=== PATIENT | male | born 2000 | race Hispanic/Latino ===

== ENCOUNTER 2022-10-20 20:38 | Emergency (ER) | payer OTHER, SELFPAY ==
[2022-10-20] MEDS ORDERED: ONDANSETRON 4 MG (ODT) TAB ONE (21:20)
--- NOTE | 2022-10-20 23:07 | EDPHYS ---
Physician Documentation [facility] Name: Ulises Connolly Age: 22 yrs Sex: Male : 2000 Arrival Date: 10/20/2022 Time: 20:38 Bed DX4 Private MD: ED Physician Endy Olmedo HPI: 10/20 21:03 This 22 yrs old Male presents to ER via Unassigned with complaints of Vomiting.cp 21:03 The patient presents to the emergency department with nausea, that is moderate, cp vomiting, that is continuous. Onset: The symptoms/episode began/occurred this morning. Associated signs and symptoms: Pertinent positives: abdominal pain, fever, body aches, headache, back pain. Historical: - Allergies: 21:06 No Known Allergies; cm10 - Home Meds: 21:06 None [Active]; cm10 - PMHx: 21:06 Seizure; cm10 - PSHx: 21:06 None; cm10 - Immunization history:: Adult Immunizations unknown. - Social history:: Smoking status: Patient reports the use of cigarette tobacco products, denies chronic smoking, but will smoke occasionally. ROS: 21:10 Constitutional: Positive for body aches, Negative for fever. cp 21:10 Respiratory: Negative for cough, shortness of breath, wheezing. cp 21:10 Eyes: Positive for pain, Negative for discharge, redness, visual disturbance. cp 21:10 ENT: Positive for sore throat, Negative for drainage from ear(s), ear pain, difficulty swallowing, difficulty handling secretions. 21:10 Abdomen/GI: Positive for nausea and vomiting, Negative for abdominal pain, diarrhea, constipation. 21:10 Neuro: Positive for headache, Negative for altered mental status, weakness. 21:10 All other systems are negative. Exam: 21:13 Constitutional: The patient appears in no acute distress, alert, awake, non-toxic, well cp developed, well nourished. 21:13 Head/Face: Normocephalic, atraumatic. cp 21:13 Eyes: Periorbital structures: appear normal, Conjunctiva: normal, no exudate, no injection, Sclera: no appreciated abnormality, Lids and lashes: appear normal, bilaterally. 21:13 ENT: External ear(s): are unremarkable, Ear canal(s): are normal, TM's: dullness, bilaterally, Nose: is normal, Mouth: Lips: moist, Oral mucosa: pink and intact, moist, Posterior pharynx: Airway: no evidence of obstruction, patent, Tonsils: no enlargement, no exudate, erythema, that is mild, exudate, is not appreciated. 21:13 Neck: ROM/movement: is normal, is supple, without pain, no range of motions limitations, no meningismus, no nuchal rigidity. 21:13 Chest/axilla: Inspection: normal, Palpation: is normal, no crepitus, no tenderness. 21:13 Cardiovascular: Rate: normal, Rhythm: regular. 21:13 Respiratory: the patient does not display signs of respiratory distress, Respirations: normal, no use of accessory muscles, no retractions, labored breathing, Breath sounds: are clear throughout, no decreased breath sounds, no stridor, no wheezing. 21:13 Abdomen/GI: Inspection: abdomen appears normal, Bowel sounds: active, all quadrants, Palpation: abdomen is soft and non-tender, in all quadrants. 21:13 Back: pain, that is mild. 21:13 Skin: no rash present. 21:13 Neuro: Orientation: to person, place \T\ time. Mentation: is normal, Motor: moves all fours, strength is normal, Sensation: is normal. Vital Signs: 21:04 BP 116 / 73; Pulse 74; Resp 18; Temp 99(O); Pulse Ox 100% ; Weight 54.43 kg; Height 5 cm10 ft. 5 in. ; Pain 6/10; 21:04 Body Mass Index 19.97 (54.43 kg, 165.1 cm) cm10 21:04 Pain Scale: Adult cm10 MDM: 21:13 Patient medically screened. [facility] 23:06 Data reviewed: vital signs, nurses notes, lab test result(s). 23:06 Differential diagnosis: gastritis, viral gastroenteritis, gastroenteritis, flu, covid, cp strep. I considered the following discharge prescriptions or medication management in the emergency department Medications were administered in the Emergency Department. See MAR. Counseling: I had a detailed discussion with the patient and/or guardian regarding: the historical points, exam findings, and any diagnostic results supporting the discharge/admit diagnosis, lab results, to return to the emergency department if symptoms worsen or persist or if there are any questions or concerns that arise at home. Response to treatment: the patient's symptoms have markedly improved after treatment, and as a result, I will discharge patient. 10/20 21:05 Order name: COVID-19 SARS RT PCR; Complete Time: 23:00 10/20 23:00 Interpretation: Reviewed. 10/20 21:05 Order name: Strep; Complete Time: 23:00 cp 10/20 23:00 Interpretation: Reviewed. 10/20 21:05 Order name: Influenza Screen (a \T\ B); Complete Time: 23:00 cp 10/20 23:00 Interpretation: Reviewed. 10/20 21:56 Order name: Throat Culture EDMN 10/20 21:54 Order name: PO challenge; Complete Time: 23:31 cp Administered Medications: 21:13 Drug: Ondansetron PO 4 mg Route: PO; cm10 Disposition Summary: 10/20/22 23:07 Discharge Ordered Location: Home cp Problem: new cp Symptoms: have improved cp Condition: Stable cp Diagnosis - Vomiting cp - Viral infection, unspecified cp Followup: cp - With: Private Physician - When: 1 - 2 days - Reason: Worsening of condition Discharge Instructions: - Discharge Summary Sheet cp - Vomiting, Adult cp - Viral Illness, Adult cp Forms: - Medication Reconciliation Form cp - Thank You Letter cp - Antibiotic Education cp - Prescription Opioid Use cp - Patient Portal Instructions cp - Work release form pf1 - Family Work Release pf1 Prescriptions: - Ibuprofen 600 mg Oral Tablet - take 1 tablet by ORAL route every 8 hours As needed take with food; 30 tablet; cp Refills: 0, Product Selection Permitted - Zofran 4 mg Oral Tablet - take 1 tablet by ORAL route every 12 hours As needed; 20 tablet; Refills: 0, cp Product Selection Permitted Signatures: Dispatcher [employer] Endy Terry MD MD cha Page, Corey, PA PA Amy Manzo RN RN cm10 Corrections: (The following items were deleted from the chart) 21:06 21:06 PMHx: None; cm10 cm10
--- NOTE | 2022-10-20 23:07 | ER ---
Nurse's Notes [facility] Name: Ulises Connolly Age: 22 yrs Sex: Male : 2000 Arrival Date: 10/20/2022 Time: 20:38 Bed DX4 Private MD: Diagnosis: Vomiting;Viral infection, unspecified Presentation: 10/20 21:04 Chief complaint: Patient states: right eye pain, nausea, vomiting and sore throat onset cm10 this morning. Pt also reports fever today. Coronavirus screen: Vaccine status: Patient reports receiving the 2nd dose of the covid vaccine. Ebola Screen: Patient denies travel to an Ebola-affected area in the 21 days before illness onset. No symptoms or risks identified at this time. Initial Sepsis Screen: Does the patient meet any 2 criteria? No. Patient's initial sepsis screen is negative. Does the patient have a suspected source of infection? No. Patient's initial sepsis screen is negative. Risk Assessment: Do you want to hurt yourself or someone else? Patient reports no desire to harm self or others. Onset of symptoms was October 20, 2022. 21:04 Method Of Arrival: Ambulatory cm10 21:04 Acuity: SHIKHA 3 cm10 Historical: - Allergies: 21:06 No Known Allergies; cm10 - Home Meds: 21:06 None [Active]; cm10 - PMHx: 21:06 Seizure; cm10 - PSHx: 21:06 None; cm10 - Immunization history:: Adult Immunizations unknown. - Social history:: Smoking status: Patient reports the use of cigarette tobacco products, denies chronic smoking, but will smoke occasionally. Vital Signs: 21:04 BP 116 / 73; Pulse 74; Resp 18; Temp 99(O); Pulse Ox 100% ; Weight 54.43 kg; Height 5 cm10 ft. 5 in. ; Pain 6/10; 21:04 Body Mass Index 19.97 (54.43 kg, 165.1 cm) cm10 21:04 Pain Scale: Adult cm10 ED Course: 20:43 Patient arrived in ED. ag3 20:44 Endy Lange PA is PHCP. cp 20:44 Endy Olmedo MD is Attending Physician. cp 21:06 Triage completed. cm10 21:06 Arm band placed on Patient placed in waiting room. cm10 21:13 Influenza Screen (a \T\ B) Sent. cm10 21:13 Strep Sent. cm10 21:13 COVID-19 SARS RT PCR Sent. cm10 Administered Medications: 21:13 Drug: Ondansetron PO 4 mg Route: PO; cm10 Outcome: 23:07 Discharge ordered by MD. cp 23:51 Discharged to home ambulatory, with family. pf1 23:51 Condition: improved 23:51 Discharge instructions given to patient, family, Instructed on discharge instructions, follow up and referral plans. Demonstrated understanding of instructions, follow-up care, medications, Prescriptions given X 2. 23:51 Patient left the ED. pf1 Signatures: Endy Lange PA PA cp Krystin Luque ag3 Rosetta Metzger RN RN 1 Amy Woods RN RN 10 Corrections: (The following items were deleted from the chart) 21:06 21:06 PMHx: None; cm10 cm10
[2022-10-21 00:45] VITALS: BP 116/73; TEMP 99; O2SAT 100
== END 2022-10-20 23:51 | disposition home or self-care (01) ==
LOC: ER 20:38
DX: B34.9 Viral infection, unspecified (principal); Z20.822 Contact with and (suspected) exposure to COVID-19; Z72.0 Tobacco use
CPT/HCPCS: 87070; 87081; 87635; 87804; Q0162

== ENCOUNTER → 2023-04-04 | Emergency (ER) | payer SELFPAY ==
[~2023-04-04] MED LIST: BENZONATATE 100 MG CAP PO ONE
--- OUTSIDE RECORDS SUMMARY | 2023-04-04 01:32 | XMS REPORT | Continuity of Care Document ---
Author Name Unknown Address [address] [facility] [place] [address] [facility] thconnect Address [address] [facility] [place] [address] Care Team Providers Care Freight And Passenger Agent Name Role Phone Pcp, Patient Does Not Have A Primary Care Physic jayden En Flynn RN Attending Clinician Unavail able COREY BARBER Attending Clinician Unavailable COREY BARBER Attending Clinician Unavailable Haider Orozco MD Attending Clinician [phone] Doctor Unassigned, Radisson Attending Clinician U Beatris Tilley DO Attending Clinician Jenaro Johnson MD Attending Clinician [phone] COREY BARBER Admitting Clinician Unavailable Problems Condition Name Condition Details Condition Category Status Onset Date Resolution Date Last Treatment Date Treating Clinician Comments Source Intractabl e seizures Intractabl e seizures Disease Active 2020-03 00:00: 00 [facility] Tourette syndrome Tourette syndrome Disease Active 10-06 00:00: 00 [facility] Allergies, Adverse Reactions, Alerts Allergy Name Allergy Type Status Severity Reaction(s) Onset Date Inactive Date Treating Clinician Comments Source NO KNOWN ALLERGIE S Drug Class Active [facility] Social History Social Habit Start Date Stop Date Quantity Comments Source Exposure to SARS-CoV-2 (event) Not sure [facility] Alcohol intake 2021-03-09 00:00:00 2021-03-09 00:00:00 0 /d [facility] Tobacco use and exposure 2014-10-01 00:00:00 2014-10-01 00:00:00 Never used [facility] Sex Assigned At 2002 00:00:00 2000 00:00:00 [facility] Smoking Status Start Date Stop Date Source Never smoker [facility] Medications Ordered Medication Name Filled Medication Name Start Date Stop Date Current Medication? Ordering Clinician Indication Dosage Frequency Signature (SIG) Comments Components Source gadoteridol (PROHANCE-1 5 mL) injection 10.98 mL 2020-03 02:30: 00 03-11 02:30 :00 No [id number] .2mL/kg 10.98 mL (0.2 mL/kg ?54.9 kg), Intravenou s, ONCE, 1 dose, On Tue03/10/21 at 2030, Routine [facility] LORazepam (ATIVAN) injection 1 mg 2020-03 00:45: 00 03-11 00:45 :00 No 1mg 1 mg, Slow IV Push, ONCE, 1 dose, On Tue03/10/21 at 1845, Routine [facility] levETIRAcet am 500 mg tablet 2020-03 00:00: 00 Yes [id number] 500mg Take 1 tablet by mouth 2 (two) times daily. [facility] levETIRAcet am 500 mg tablet 2020-03 00:00: 00 Yes [id number] 500mg Take 1 tablet by mouth 2 (two) times daily. [facility] enoxaparin (LOVENOX) injection 40 mg 2020-03 23:00: 00 Yes 40mg 40 mg, Subcutaneo us, DAILY, First dose on Tue03/09/21 at 1700, Until Discontinu ed, Routine [facility] levETIRAcet am (KEPPRA) tablet 500 mg 2020-03 14:00: 00 Yes 500mg 500 mg, Oral, BID, First dose on Tue03/09/21 at 0800, Until Discontinu ed, Routine [facility] levETIRAcet am (KEPPRA) in NACL (ISO-OS) 1,000 mg/100 mL RTU 2020-03 07:30: 00 03-09 07:01 :00 No 1000mg 1,000 mg, IV Piggyback, ONCE, 1 dose, On Tue03/09/21 at 0130, Administer over 15 Minutes, 100 mL [facility] ondansetron (ZOFRAN (PF)) injection 4 mg 2020-03 06:44: 07 Yes 4mg 4 mg, Slow IV Push, Q6HPRN, Starting on Tue03/09/21 at 0044, Until Discontinu ed, Routine, Nausea and Vomiting (N/V) [facility] acetaminoph en (TYLENOL) tablet 650 mg 2020-03 06:44: 01 Yes 650mg 650 mg, Oral, Q6HPRN, Starting on Tue03/09/21 at 0044, Until Discontinu ed, Routine, Pain (scale 1-3) [facility] No known medications No [facility] No known medications No Un [facility] Vital Signs Vital Name Observation Time Observation Value Comments S ource Systolic blood pressure 2021-03-11 13:44:00 124 mm[Hg] [facility] Diastolic blood pressure 2021-03-11 13:44:00 72 mm[Hg] [facility] Heart rate 2021-03-11 13:44:00 79 /min [facility] Body temperature 2021-03-11 13:44:00 37 Erica [facility] Respiratory rate 2021-03-11 13:44:00 22 /min [facility] Oxygen saturation in Arterial blood by Pulse oximetry 2021-03-11 13:44:00 99 /min [facility] Body weight 2021-03-09 04:17:[address] [facility] Systolic blood pressure 2020-04-04 22:16:00 117 mm[Hg] [facility] Diastolic blood pressure 2020-04-04 22:16:00 63 mm[Hg] [facility] Heart rate 2020-04-04 22:16:00 68 /min [facility] Body temperature 2020-04-04 22:16:00 37.17 Erica [facility] Respiratory rate 2020-04-04 22:16:00 20 /min [facility] Oxygen saturation in Arterial blood by Pulse oximetry 2020-04-04 22:16:00 99 /min [facility] Body weight 2020-04-04 00:37:[address] [facility] Procedures Procedure Date / Time Performed Performing Clinician Source MR BRAIN W WO CONTRAST WITH NEUROQUANT 2021-03-11 02:21:06 Keyur Ochoa [facility] ELECTROENCEPHALOGRAM 2021-03-10 00:00:00 Keyur Ochoa [facility] BASIC METABOLIC PANEL (NA, K , CL, CO2, GLUCOSE, BUN, CREATININE, CA) 2021-03-09 11:59:00 Corey Barber [facility] CBC WITH DIFF 2021-03-09 11:59:00 Corey Barber [facility] EXTRA TUBE SST 2021-03-09 06:46:00 Corey Barber [facility] COVID-19 (ID NOW RAPID TESTING) 2021-03-09 06:46:00 Haider Orozco [facility] LAB ONLY COVID INTERPRETATION 2021-03-09 06:46:00 Haider Orozco [facility] URINALYSIS 2021-03-09 05:17:00 Haider Orozco [facility] URINE DRUG (IMMUNOASSAY) - COMPREHENSIVE DRUG SCREEN W/O REFLEX 2021-03-09 05:17:00 Haider Orozco [facility] CREATINE KINASE 2021-03-09 04:46:00 Corey Barber [facility] AMYLASE 2021-03-09 04:46:00 Haider Orozco [facility] LIPASE 2021-03-09 04:46:00 Haider Orozco [facility] COMP. METABOLIC PANEL ([id number]) 2021-03-09 04:46:00 Haider Orozco [facility] ETHANOL 2021-03-09 04:46:00 Hiader Orozco [facility] CBC WITH DIFF 2021-03-09 04:46:00 Haider Orozco [facility] CT HEAD WO CONTRAST 2021-03-09 04:31:23 Haider Orozco [facility] CONSENT/REFUSAL FOR DIAGNOSI S AND TREATMENT 2021-03-09 03:53:35 Doctor Unassigned, Radisson [facility] EXTERNAL PROVIDER RECORDS 2020-04-16 06:01:00 Doctor Unassigned, Radisson [facility] POCT GLUCOSE (AUTOMATED) 2020-04-04 06:03:00 Beatris Blake [facility] EKG-12 LEAD 2020-04-04 04:17:19 Jenaro Johnson [facility] POCT GLUCOSE (AUTOMATED) 2020-04-04 04:08:00 Beatris Blake [facility] GALV/CLC ONLY - URINE DRUG (IMMUNOASSAY) - 4 ER PANEL 2020-04-04 02:33:00 Mayuri Anderson [facility] CBC WITH DIFF 2020-04-04 02:33:00 Justin Mayuri [facility] URINALYSIS 2020-04-04 02:33:00 Justin Mayuri [facility] EXTRA TUBE LT. BLUE 2020-04-04 02:33:00 Justin Mayuri [facility] EXTRA TUBE LT. GREEN 2020-04-04 02:33:00 Justin Mayuri [facility] COVID-19 (ID NOW RAPID TESTING) 2020-04-04 02:33:00 Jutsin Mayuri [facility] HEPATIC FUNCTION PANEL ([id number]) (ALB,T.PRO,BILI T,BU/BC,ALT,AST,ALK PHOS) 2020-04-04 02:33:00 Justin Mayuri [facility] BASIC METABOLIC PANEL (NA, K , CL, CO2, GLUCOSE, BUN, CREATININE, CA) 2020-04-04 02:33:00 [facility] SALICYLATE 2020-04-04 02:33:00 Mayuri Anderson [facility] ETHANOL 2020-04-04 02:33:00 Mayuri Anderson [facility] Encounters Start Date/Time End Date/Time Encounter Type Admission Type Attending Clinicians Care Facility Care Department Encounter ID Source 2021-03-12 00:00:00 2021-03-12 00:00:00 Transition of Care En Flynn [facility] [id number] [facility] 2021-03-08 22:12:00 2021-03-11 10:30:00 Inpatient X COREY BARBER COREY [facility] JENIFFER [id number] [facility] 2021-03-08 22:12:00 2021-03-11 10:30:00 Hospital Encounter Haider Orozco Corey [facility] ([facility] [id number] [facility] 2020-04-16 00:00:00 2020-04-16 00:00:00 Orders Only Doctor Unassigned, Radisson [facility] [id number] [facility] 2020-04-03 18:42:00 2020-04-04 16:53:00 Emergency [facility] [id number] [id number] [facility] 2020-04-03 18:42:00 2020-04-03 18:42:00 Emergency X [facility] ERT [id number] [facility] Results Test Description Test Time Test Comments Results Result Co mments Source [facility] with [id number] 12:06:33* Test Item Value Reference Range Interpretation Comme nts WBC (test code = 6690-2) See_Comment [Automated messa ge] The system which generated this result transmitted reference range: 4.20 - 10.70 10*3/?L. The reference range was not used to interpret this result as normal/abnormal. RBC (test code = 789-8) See_Comment [Automated messa ge] The system which generated this result transmitted reference range: 4.26 - 5.52 10*6/?L. The reference range was not used to interpret this result as normal/abnormal. HGB (test code = 718-7) 15.1 g/dL 12.2-16.4 HCT (test code = 4544-3) 45.4 % 38.4-49.3 MCV (test code = 787-2) 89.5 fL 81.7-95.6 MCH (test code = 785-6) 29.8 pg 26.1-32.7 MCHC (test code = 786-4) 33.3 g/dL 31.2-35.0 RDW-SD (test code = 42106-7) 39.8 fL 38.5-51.6 RDW-CV (test code = 788-0) 12.2 % 12.1-15.4 PLT (test code = 777-3) See_Comment [Automated messa ge] The system which generated this result transmitted reference range: 150 - 328 10*3/?L. The reference range was not used to interpret this result as normal/abnormal. MPV (test code = 16967-4) 10.1 fL 9.8-13.0 NRBC/100 WBC (test code = 0893076249) See_Comment [Automated Alekto ssage] The system which generated this result transmitted reference range: 0.0 - 10.0 /100 WBCs. The reference range was not used to interpret this result as normal/abnormal. NRBC x10^3 (test code = 5968210860) <0.01 See_Comment [Automated messa ge] The system which generated this result transmitted reference range: 10*3/?L. The reference range was not used to interpret this result as normal/abnormal. GRAN MAT (NEUT) % (test code = 770-8) 55.3 % IMM GRAN % (test code = 0216266846) 0.20 % LYMPH % (test code = 736-9) 30.4 % MONO % (test code = 5905-5) 12.4 % EOS % (test code = 713-8) 1.3 % BASO % (test code = 706-2) 0.4 % GRAN MAT x10^3(ANC) (test code = 6971748382) 4.58 10*3/uL 1.99-6.95 IMM GRAN x10^3 (test code = 0433812719) <0.03 0.00-0.06 LYMPH x10^3 (test code = 731-0) 2.52 10*3/uL 1.09-3.23 MONO x10^3 (test code = 742-7) 1.03 10*3/uL 0.36-1.02 H EOS x10^3 (test code = 711-2) 0.11 10*3/uL 0.06-0.53 BASO x10^3 (test code = 704-7) 0.03 10*3/uL 0.01-0.09 Lab Interpretation (test code = 73346-0) [facility] [id number] 06:56:31* Test Item Value Reference Range Interpretation Comme nts CK (test code = 9734925221) 144 U/L 33-194 Slight hemolysis Lab Interpretation (test cod e = 77091-7) Normal [facility]2021-[facility] 05:16:07* Test Item Value Reference Range Interpretation Comme nts LEO (test code = 1813050857) 93 U/L 35-110 Lab Interpretation (test cod e = 61572-7) Normal [facility]21[facility] 05:09:15* Test Item Value Reference Range Interpretation Comme nts ALCOHOL (test code = 9558301720) <10 mg/dL OLLIE (test code = OLLIE) Toxic Greater than or equal to 80 mg/dL. NOTE: Whole blood values are approximately 10% to 15% lower than serum and plasma. [facility] (84339)2021-03-09 05:08:05* Test Item Value Reference Range Interpretation Comme nts NA (test code = 7147233392) 139 mmol/L 135-145 K (test code = 8197083858) 4.3 mmol/L 3.5-5.0 Slight hemolysis CL (test code = 5724270026) 103 mmol/L 98-108 CO2 TOTAL (test code = 0441075503) 24 mmol/L 23-31 AGAP (test code = 2650255341) 2-16 BUN (test code = 9774008267) 9 mg/dL 7-23 Slight hemolysis GLUCOSE (test code = 7607359112) 94 mg/dL 70-110 CREATININE (test code = 8513617774) 0.98 mg/dL 0.60-1.25 TOTAL BILI (test code = 8968793141) 1.6 mg/dL 0.1-1.1 H CALCIUM (test code = 4540730087) 9.6 mg/dL 8.6-10.6 T PROTEIN (test code = 7064950302) 7.9 g/dL 6.3-8.2 ALBUMIN (test code = 3645536550) 4.9 g/dL 3.5-5.0 ALK PHOS (test code = 5692849017) 64 U/L 34-122 Slight hemolysis ALTv (test code = 1742-6) 16 U/L 5-50 AST(SGOT) (test code = 7314563376) 30 U/L 13-40 Slight hemolysis eGFR (test code = 5948767283) mL/min/1.73m2 OLLIE (test code = OLLIE) Association of Glomerular Filtration Rate (GFR) and Staging of Kidney Disease* + -----+ --------+ +| GFR (mL/min/1.73 m2) ?| With Kidney Damage ?| ?Without Kidney Damage+ +------- +---- --+| ?>90 ?| ?Stage one ?| ? Normal ?+ ------+ ---------+--------- +| ?60-89 ?| ?Stage two ?| ? Decreased GFR ? + -----+ --------+ +| ?30-59 ?| ?Stage three ?| ? Stage three ? + -----+ --------+ +| ?15-29 ?| ?Stage four ? | ? Stage four ?+ ------+ ---------+--------- +| ?<15 (or dialysis) ? ?| ?Stage five ? | ? Stage five ?+ ------+ ---------+--------- + *Each stage assumes the associated GFR level has been in effect for at least three months. ?Stages 1 to 5, with or without kidney disease, indicate chronic kidney disease. Notes: Determination of stages one and two (with eGFR >59mL/min/1.73 m2) requires estimation of kidney damage for at least three months as defined by structural or functional abnormalities of the kidney, manifested by either:Pathological abnormalities or Markers of kidney damage (including abnormalities in the composition of the blood or urine or abnormalities in imaging tests). Lab Interpretation (test code = 47661-6) Abnormal [facility] 05:08:05* Test Item Value Reference Range Interpretation Comme nts LIPASE (test code = 1027389502) 65 U/L 0-220 Lab Interpretation (test cod e = 35279-9) Normal [facility] WITH [id number] 04:53:26* Test Item Value Reference Range Interpretation Comme nts WBC (test code = 6690-2) See_Comment [Automated Taskmita Xenapto] The system which generated this result transmitted reference range: 4.20 - 10.70 10*3/?L. The reference range was not used to interpret this result as normal/abnormal. RBC (test code = 789-8) See_Comment [Automated Taskmita Xenapto] The system which generated this result transmitted reference range: 4.26 - 5.52 10*6/?L. The reference range was not used to interpret this result as normal/abnormal. HGB (test code = 718-7) 15.2 g/dL 12.2-16.4 HCT (test code = 4544-3) 45.4 % 38.4-49.3 MCV (test code = 787-2) 89.2 fL 81.7-95.6 MCH (test code = 785-6) 29.9 pg 26.1-32.7 MCHC (test code = 786-4) 33.5 g/dL 31.2-35.0 RDW-SD (test code = 47331-3) 39.4 fL 38.5-51.6 RDW-CV (test code = 788-0) 11.9 % 12.1-15.4 L PLT (test code = 777-3) See_Comment [Automated Taskmita ge] The system which generated this result transmitted reference range: 150 - 328 10*3/?L. The reference range was not used to interpret this result as normal/abnormal. MPV (test code = 40524-4) 10.2 fL 9.8-13.0 NRBC/100 WBC (test code = 7671454114) See_Comment [Automated Alekto ssage] The system which generated this result transmitted reference range: 0.0 - 10.0 /100 WBCs. The reference range was not used to interpret this result as normal/abnormal. NRBC x10^3 (test code = 5363240391) <0.01 See_Comment [Automated Taskmita ge] The system which generated this result transmitted reference range: 10*3/?L. The reference range was not used to interpret this result as normal/abnormal. GRAN MAT (NEUT) % (test code = 770-8) 61.3 % IMM GRAN % (test code = 0791521634) 0.30 % LYMPH % (test code = 736-9) 25.7 % MONO % (test code = 5905-5) 11.9 % EOS % (test code = 713-8) 0.3 % BASO % (test code = 706-2) 0.5 % GRAN MAT x10^3(ANC) (test code = 9681508966) 5.66 10*3/uL 1.99-6.95 IMM GRAN x10^3 (test code = 8434623873) 0.03 10*3/uL 0.00-0.06 LYMPH x10^3 (test code = 731-0) 2.38 10*3/uL 1.09-3.23 MONO x10^3 (test code = 742-7) 1.10 10*3/uL 0.36-1.02 H EOS x10^3 (test code = 711-2) 0.03 10*3/uL 0.06-0.53 L BASO x10^3 (test code = 704-7) 0.05 10*3/uL 0.01-0.09 Lab Interpretation (test code = 76892-1) Abnormal [facility] GLUCOSE (AUTOMATED)2020-04-04 06:06:00* Test Item Value Reference Range Interpretation Comme nts POCT GLU (test code = 6763566539) 104 mg/dL 70-110 Lab Interpretation (test cod e = 49902-9) Normal [facility] [id number] 04:37:00* Test Item Value Reference Range Interpretation Comme nts AMPHET (test code = 3318375271) Negative Negative Cocaine Metabolite (test code = 8916020509) Negative Negative OPIATES (test code = 0279850547) Negative Negative THC (test code = 2903979727) Presumptive Positive Negative A OLLIE (test code = OLLIE) Urine Drug Cutoff Ranges Amphetamine: ? 1,000 ng/mLCocaine: ? 150 ng/mLOpiates: ? 300 ng/mLCannabinoids: ?50 ng/mL The results are to be used only for medical (i.e., treatment) purposes. Unconfirmed screening results must not be used for non-medical purposes (e.g., employment testing, legal testing). Lab Interpretation (test code = 04653-3) Abnormal [facility] GLUCOSE (AUTOMATED)2020-04-04 04:11:00* Test Item Value Reference Range Interpretation Comme nts POCT GLU (test code = 6146856436) 97 mg/dL 70-110 Lab Interpretation (test cod e = 67046-7) Normal [facility] (ID NOW RAPID TESTING)2020-04-04 03:03:00* Test Item Value Reference Range Interpretation Comme nts SARS-CoV-2 Rapid ID NOW (test code = 79037-7) Not Detected Not Detected OLLIE (test code = OLLIE) ID NOW COVID-19 As say is an isothermal nucleic acid amplification test intended for the qualitative detection of nucleic acid from SARS-CoV-2 viral RNA in nasopharyngeal (PETROLEUM ENGINEER) specimens. It is used under Emergency Use Authorization (EUA) by FDA. The limit of detection (LOD) of the assay is 125 Genome Equivalents/mL. A positive result is indicative of the presence of SARS-CoV-2 RNA. ?Clinical correlation with patient history and other diagnostic information is necessary to determine patient infection status. A negative (Not Detected) result does not preclude SARS-CoV-2 infection. In patients with clinical symptoms and other tests that are consistent with SARS-CoV-2 infection, negative results should be treated as presumptive negative and a new specimen should be tested with alternative PCR molecular test. Invalid: Please collect a new specimen for repeat patient testing if clinically indicated. Lab Interpretation (test code = 90992-0) Normal [facility] HospitalEthanol [id number] 03:02:00* Test Item Value Reference Range Interpretation Comme nts ALCOHOL (test code = 8724573077) <10 mg/dL OLLIE (test code = OLLIE) Toxic Greater than or equal to 80 mg/dL. NOTE: Whole blood values are approximately 10% to 15% lower than serum and plasma. [facility] HospitalSALICYLATE2021-01-22 03:02:00* Test Item Value Reference Range Interpretation Comme nts SALICYLATE (test code = 9407488551) <10 mg/L OLLIE (test code = OLLIE) Therapeutic Range: ? Analgesic and Antipyretic Use ? 20-100 mg/L ? ? Anti-Inflammatory Use ? 100-250 mg/L Toxic Range: ? Greater than 300 mg/L [facility] HospitalACETAMINOPHEN2021-01-22 03:02:00* Test Item Value Reference Range Interpretation Comme nts ACETAMINOP (test code = 1964006147) <10.0 10-30 L OLLIE (test code = OLLIE) Toxic: Greater reg n 200 ug/mL @ 4 hour post ingestion or greater than 50 ug/mL @ 12 hour post ingestion Lab Interpretation (test code = 75900-6) Abnormal [facility] Hospital[facility]asi Metabolic Panel (NA, K, CL, CO2, GLUCOSE, BUN, CREATININE, CA)2020-04-04 02:56:00* Test Item Value Reference Range Interpretation Comme nts NA (test code = 5195243244) 140 mmol/L 135-145 K (test code = 7646443927) 4.1 mmol/L 3.5-5 CL (test code = 3076615723) 103 mmol/L 98-108 CO2 TOTAL (test code = 0925336725) 25 mmol/L 23-31 AGAP (test code = 5712798555) 2-16 BUN (test code = 6395643291) 13 mg/dL 7-23 GLUCOSE (test code = 4243628487) 68 mg/dL 70-110 L CREATININE (test code = 0063298513) 0.87 mg/dL 0.6-1.25 CALCIUM (test code = 5976234350) 9.6 mg/dL 8.6-10.6 eGFR Calculation (Non-) (test code = 6167710706) mL/min/1.73m2 eGFR Calculation () (test code = 2165068644) mL/min/1.73m2 OLLIE (test code = OLLIE) Association of Glomerular Filtration Rate (GFR) and Staging of Kidney Disease* + --+ --+ ------+| GFR (mL/min/1.73 m2) ?| With Kidney Damage ?| ?Without Kidney Damage+ --------+ --------+ +| ?>90 ?| ?Stage one ?| ? Normal ?+ ---+ ---+ -------+| ?60-89 ?| ?Stage two ?| ? Decreased GFR ? + --+ --+ ------+| ?30-59 ?| ?Stage three ?| ? Stage three ? + --+ --+ ------+| ?15-29 ?| ?Stage four ? | ? Stage four ?+ ---+ ---+ -------+| ?<15 (or dialysis) ? ?| ?Stage five ? | ? Stage five ?+ ---+ ---+ -------+ *Each stage assumes the associated GFR level has been in effect for at least three months. ?Stages 1 to 5, with or without kidney disease, indicate chronic kidney disease. Notes: Determination of stages one and two (with eGFR >59mL/min/1.73 m2) requires estimation of kidney damage for at least three months as defined by structural or functional abnormalities of the kidney, manifested by either:Pathological abnormalities or Markers of kidney damage (including abnormalities in the composition of the blood or urine or abnormalities in imaging tests). Lab Interpretation (test code = 73012-6) Abnormal [facility] Hospital[facility] Panel (ALB, T.PRO, BILI T, BU/BC, ALT, AST, ALK PHOS)2020-04-04 02:56:00* Test Item Value Reference Range Interpretation Comme nts TOTAL BILI (test code = 9757432559) 3.0 mg/dL 0.1-1.1 H BILI UNCON (test code = 9551079326) 3.0 mg/dL 0.1-1.1 H BILI CONJ (test code = 1146208019) 0.0 mg/dL 0-0.3 T PROTEIN (test code = 3864751021) 7.6 g/dL 6.3-8.2 ALBUMIN (test code = 2427505151) 5.0 g/dL 3.5-5 ALK PHOS (test code = 2023402875) 51 U/L 34-122 ALTv (test code = 1742-6) 14 U/L 5-50 AST(SGOT) (test code = 4768240458) 27 U/L 13-40 Lab Interpretation (test cod e = 93812-2) Abnormal [facility] HospitalUrinalysis2021-01-22 02:49:00* Test Item Value Reference Range Interpretation Comme nts APPEARANCE (test code = 9077308009) Clear Clear COLOR (test code = 9480825819) Yellow Yellow PH (test code = 5970497042) 4.8-8.0 SP GRAVITY (test code = 2953658283) 1.003-1.030 GLU U QUAL (test code = 8007793885) Normal Normal BLOOD (test code = 0856494706) Negative Negative KETONES (test code = 9949153043) Negative Negative PROTEIN (test code = 2887-8) Negative Negative UROBILIN (test code = 2384951417) 2.0 mg/dL Normal A BILIRUBIN (test code = 6138395724) Negative Negative NITRITE (test code = 7719684248) Negative Negative LEUK ADRIÁN (test code = 0684639015) Negative Negative RBC/HPF (test code = 8505775299) See_Comment [Automated Taskmita Xenapto] The system which generated this result transmitted reference range: 0 - 3 HPF. The reference range was not used to interpret this result as normal/abnormal. WBC/HPF (test code = 4950263299) See_Comment [Automated Taskmita Xenapto] The system which generated this result transmitted reference range: 0 - 5 HPF. The reference range was not used to interpret this result as normal/abnormal. BACTERIA (test code = 4697786144) Negative Negative MUCOUS (test code = 2991773894) Slight Negative LPF A SPERM (test code = 2924189553) <1 See_Comment [Automated messa ge] The system which generated this result transmitted reference range: <=1 HPF. The reference range was not used to interpret this result as normal/abnormal. Lab Interpretation (test code = 67105-4) Abnormal [facility] with [id number] 02:48:00* Test Item Value Reference Range Interpretation Comme nts WBC (test code = 6690-2) See_Comment [Automated messa ge] The system which generated this result transmitted reference range: 4.50 - 13.50 10*3/?L. The reference range was not used to interpret this result as normal/abnormal. RBC (test code = 789-8) See_Comment H [Automated messa ge] The system which generated this result transmitted reference range: 4.50 - 5.30 10*6/?L. The reference range was not used to interpret this result as normal/abnormal. HGB (test code = 718-7) 16.2 g/dL 13-16 H HCT (test code = 4544-3) 47.8 % 37-49 MCV (test code = 787-2) 89.3 fL 78-95 MCH (test code = 785-6) 30.3 pg 26-32 MCHC (test code = 786-4) 33.9 g/dL 32-36 RDW-SD (test code = 68776-5) 38.3 fL 38.5-49 L RDW-CV (test code = 788-0) 11.9 % 11.5-14 PLT (test code = 777-3) See_Comment [Automated messa ge] The system which generated this result transmitted reference range: 133 - 320 10*3/?L. The reference range was not used to interpret this result as normal/abnormal. MPV (test code = 48252-2) 10.6 fL 9.3-12.9 NRBC/100 WBC (test code = 9314479469) See_Comment [Automated Alekto ssage] The system which generated this result transmitted reference range: 0.0 - 10.0 /100 WBCs. The reference range was not used to interpret this result as normal/abnormal. NRBC x10^3 (test code = 9068558168) <0.01 See_Comment [Automated messa ge] The system which generated this result transmitted reference range: 10*3/?L. The reference range was not used to interpret this result as normal/abnormal. GRAN MAT (NEUT) % (test code = 770-8) 76.7 % IMM GRAN % (test code = 1697582047) 0.20 % LYMPH % (test code = 736-9) 16.7 % MONO % (test code = 5905-5) 5.9 % EOS % (test code = 713-8) 0.3 % BASO % (test code = 706-2) 0.2 % GRAN MAT x10^3(ANC) (test code = 9189162721) 9.62 10*3/uL 1.5-10.3 IMM GRAN x10^3 (test code = 7156946449) 0.03 10*3/uL 0-0.06 LYMPH x10^3 (test code = 731-0) 2.09 10*3/uL 0.7-7.4 MONO x10^3 (test code = 742-7) 0.74 10*3/uL 0-0.5 H EOS x10^3 (test code = 711-2) 0.04 10*3/uL 0-0.4 BASO x10^3 (test code = 704-7) 0.03 10*3/uL 0-0.1 Lab Interpretation (test code = 37859-9) Abnormal [facility]"
--- NOTE | 2023-04-04 03:12 | EDPHYS ---
Physician Documentation [facility] Name: Ulises Connolly Age: 23 yrs Sex: Male : 2000 Arrival Date: 04/04/2023 Time: 01:28 Bed 5 Private MD: ED Physician Ori Brooks HPI: 04/04 03:11 This 23 yrs old Male presents to ER via Ambulatory with complaints of Flu ms3 Symptoms, Fever. 03:11 23-year-old male with past medical history of seizures presents to the emergency ms3 department for cough, chills, weakness that been ongoing for 1 week. Patient states he has had posttussive emesis. Patient endorses sore throat and bodyaches. Historical: - Allergies: :56 No Known Allergies; pf1 - PMHx: :56 Seizure; pf1 - PSHx: :56 None; pf1 - Immunization history:: Adult Immunizations up to date, Client reports receiving the 1st dose of the Covid vaccine, pfizer Last tetanus immunization: < 5 years ago Flu vaccine is not up to date. - Social history:: Smoking status: Reported history of juuling and/or vaping. Patient uses alcohol, weekly. Patient/guardian denies using street drugs. ROS: 03:11 Neck: Negative for injury, pain, and swelling, Cardiovascular: Negative for chest pain, ms3 and palpitations. Respiratory: Negative for shortness of breath, cough, wheezing, and pleuritic chest pain, Abdomen/GI: Negative for abdominal pain, nausea, vomiting, diarrhea, and constipation, MS/Extremity: Negative for injury and deformity, Skin: Negative for injury, rash, and discoloration, 03:11 Constitutional: Positive for body aches, chills, 03:11 All other systems are negative, Exam: 03:11 Constitutional: This is a well developed, well nourished patient who is awake, alert, ms3 and in no acute distress. Neck: Trachea midline, no cervical lymphadenopathy. Supple, full range of motion without nuchal rigidity, or vertebral point tenderness. No Meningismus. Chest/axilla: Normal chest wall appearance and motion. Nontender with no deformity. Cardiovascular: Regular rate and rhythm with a normal S1 and S2. No gallops, murmurs, or rubs. Normal PMI, no JVD. No pulse deficits. Respiratory: Lungs have equal breath sounds bilaterally, clear to auscultation and percussion. No rales, rhonchi or wheezes noted. No increased work of breathing, no retractions or nasal flaring. Abdomen/GI: Soft, non-tender, with normal bowel sounds. No distension or tympany. No guarding or rebound. No evidence of tenderness throughout. Skin: Warm, dry with normal turgor. Normal color with no rashes, no lesions, and no evidence of cellulitis. MS/ Extremity: Pulses equal, no cyanosis. Neurovascular intact. Full, normal range of motion. Vital Signs: 01:42 BP 134 / 71; Pulse 92; Resp 20; Temp 99.1; Pulse Ox 98% on R/A; Weight 61.23 kg; Height pf1 5 ft. 7 in. ; Pain 8/10; 02:00 BP 134 / 83; Pulse 89; Resp 18 S; Pulse Ox 100% on R/A; jw7 03:00 BP 126 / 73; Pulse 87; Resp 18 S; Pulse Ox 98% on R/A; jw7 01:42 Body Mass Index 21.14 (61.23 kg, 170.18 cm) pf1 01:42 Pain Scale: Adult pf1 MDM: 02:08 Patient medically screened. ms3 03:11 Differential diagnosis: viral Infection, URI, bronchitis. Data reviewed: vital signs, ms3 nurses notes, and as a result, I will discharge patient. Data reviewed: radiologic studies, plain films. I considered the following discharge prescriptions or medication management in the emergency department Medications were administered in the Emergency Department. See MAR. Counseling: I had a detailed discussion with the patient and/or guardian regarding the historical points, exam findings, and any diagnostic results supporting the discharge/admit diagnosis, radiology results, the need for outpatient follow up, to return to the emergency department if symptoms worsen or persist or if there are any questions or concerns that arise at home. Special discussion: I discussed with the patient/guardian in detail that at this point there is no indication for admission to the hospital. It is understood, however, that if the symptoms persist or worsen the patient needs to return immediately for re-evaluation. ED course: Discussed chest x-ray results with patient. Patient to follow-up with primary care physician in 2 to 3 days. Patient understands and agrees with plan. All questions were answered. Return precautions discussed include worsening symptoms, or any other concern. 04/04 02:09 Order name: Chest Single View XRAY ms3 Administered Medications: 02:19 Drug: Tessalon Perle PO 100 mg PO once Route: PO; jb4 03:34 Follow up: Response: No adverse reaction jw7 Disposition Summary: 04/04/23 03:11 Discharge Ordered Notes: Location: Home ms3 Condition: Stable ms3 Diagnosis - Cough ms3 Followup: ms3 - With: Nando Barber DO - When: 2 - 3 days - Reason: Recheck today's complaints Discharge Instructions: - Discharge Summary Sheet ms3 - Cough, Adult ms3 Forms: - Medication Reconciliation Form ms3 - Thank You Letter ms3 - Antibiotic Education ms3 - Prescription Opioid Use ms3 - Patient Portal Instructions ms3 - Leadership Thank You Letter ms3 - Work release form jw7 Prescriptions: - benzonatate 200 mg Oral capsule - take 1 capsule ORAL route 3 times per day as needed; 30 capsule; Refills: 0, ms3 Product Selection Permitted Signatures: Dispatcher [employer] EDAl Preston, RN RN jb4 Ori Brooks DO DO ms3 Rosetta Metzger RN RN pf1 Rosy Griffin RN jw7
--- NOTE | 2023-04-04 03:12 | ER ---
Nurse's Notes [facility] Name: Ulises Connolly Age: 23 yrs Sex: Male : 2000 Arrival Date: 04/04/2023 Time: 01:28 Bed 5 Private MD: Diagnosis: Cough Presentation: 04/04 01:42 Chief complaint: Patient states: generalized body aches pain of 8, fever with pf1 cough,onset 1 week and vomiting,onset 0000 this AM. Patient stated took Tylenol 650 mg at 2000 tonight. 01:42 Coronavirus screen: Vaccine status: Patient reports receiving the 1st dose of the Covid pf1 vaccine. Client denies travel out of the [place] in the last 14 days. Client presents with at least one sign or symptom that may indicate coronavirus-19. Ebola Screen: Patient negative for fever greater than or equal to 101.5 degrees Fahrenheit, and additional compatible Ebola Virus Disease symptoms. Initial Sepsis Screen: Does the patient meet any 2 criteria? HR > 90 bpm. No. Patient's initial sepsis screen is negative. Does the patient have a suspected source of infection? No. Patient's initial sepsis screen is negative. Risk Assessment: Do you want to hurt yourself or someone else? Patient reports no desire to harm self or others. 01:42 Method Of Arrival: Ambulatory pf1 01:42 Acuity: SHIKHA 4 pf1 03:31 Onset of symptoms was March 28, 2023. jw7 Historical: - Allergies: 01:56 No Known Allergies; pf1 - PMHx: 01:56 Seizure; pf1 - PSHx: 01:56 None; pf1 - Immunization history:: Adult Immunizations up to date, Client reports receiving the 1st dose of the Covid vaccine, pfizer Last tetanus immunization: < 5 years ago Flu vaccine is not up to date. - Social history:: Smoking status: Reported history of juuling and/or vaping. Patient uses alcohol, weekly. Patient/guardian denies using street drugs. Screenin:00 [facility] ED Fall Risk Assessment (Adult) History of falling in the last 3 months, jw7 including since admission No falls in past 3 months (0 pts) Score/Fall Risk Level 0 - 2 = Low Risk Oriented to surroundings, Maintained a safe environment, Educated pt \T\ family on fall prevention, incl call for assistance when getting out of bed. Abuse screen: Denies threats or abuse. Denies injuries from another. Nutritional screening: No deficits noted. Tuberculosis screening: No symptoms or risk factors identified. Assessment: 02:00 General: Appears in no apparent distress. comfortable, Behavior is calm, cooperative. jw7 Pain: Complains of pain in body aches Pain does not radiate. Pain currently is 8 out of 10 on a pain scale. Quality of pain is described as aching, Pain began 1 week ago Is continuous. Neuro: Level of Consciousness is awake, alert, obeys commands, Oriented to person, place, time, situation. Cardiovascular: Capillary refill < 3 seconds Clubbing of nail beds is absent JVD is absent Patient's skin is warm and dry. Respiratory: Airway is patent Trachea midline Respiratory effort is even, unlabored, Respiratory pattern is regular, symmetrical, Parent/caregiver reports the patient having cough that is persistent. GI: Abdomen is flat, non-distended. : No deficits noted. No signs and/or symptoms were reported regarding the genitourinary system. EENT: No deficits noted. No signs and/or symptoms were reported regarding the EENT system. Derm: Skin is intact, is healthy with good turgor, Skin is dry, Skin is normal, Skin temperature is warm. Musculoskeletal: Circulation, motion, and sensation intact. Range of motion: intact in all extremities. 03:00 Reassessment: Patient appears in no apparent distress at this time. Patient and/or jw7 family updated on plan of care and expected duration. Pain level reassessed. Patient is alert, oriented x 3, equal unlabored respirations, skin warm/dry/pink. Vital Signs: 01:42 BP 134 / 71; Pulse 92; Resp 20; Temp 99.1; Pulse Ox 98% on R/A; Weight 61.23 kg; Height pf1 5 ft. 7 in. ; Pain 8/10; 02:00 BP 134 / 83; Pulse 89; Resp 18 S; Pulse Ox 100% on R/A; jw7 03:00 BP 126 / 73; Pulse 87; Resp 18 S; Pulse Ox 98% on R/A; jw7 01:42 Body Mass Index 21.14 (61.23 kg, 170.18 cm) pf1 01:42 Pain Scale: Adult pf1 ED Course: 01:35 Patient arrived in ED. gm2 01:38 Ori Brooks DO is Attending Physician. ms3 01:56 Triage completed. pf1 02:00 Patient has correct armband on for positive identification. Bed in low position. Call jw7 light in reach. 02:00 Arm band placed on. jw7 02:23 Chest Single View XRAY In Process Unspecified. EDMS 03:11 Nando Barber DO is Referral Physician. ms3 03:32 No provider procedures requiring assistance completed. Patient did not have IV access jw7 during this emergency room visit. 03:34 Provided Education on: discharge instructions . jw7 Administered Medications: 02:19 Drug: Tessalon Perle PO 100 mg PO once Route: PO; jb4 03:34 Follow up: Response: No adverse reaction jw7 Medication: 03:32 VIS not applicable for this client. jw7 Outcome: 03:11 Discharge ordered by MD. ms3 03:33 Discharged to home ambulatory, jw7 03:33 Condition: stable 03:33 Discharge instructions given to patient, Instructed on discharge instructions, follow up and referral plans. medication usage, Demonstrated understanding of instructions, follow-up care, medications, Prescriptions given X 1, 03:34 Patient left the ED. jw7 Signatures: Dispatcher [employer] EDMS Al De Jesus RN RN jb4 Ori Brooks DO DO ms3 Rosy Griffin RN RN jw7 Rosetta Metzger RN RN pf1 Maye Elias gm2 Corrections: (The following items were deleted from the chart) 03:32 02:00 Pain: Denies pain. jw7 jw7
[2023-04-04 03:50] VITALS: BP 126/73; TEMP 99.1; O2SAT 98
--- NOTE | 2023-04-04 14:26 | RAD REPORT ---
EXAM DESCRIPTION: XR CHEST 1 VIEW CLINICAL HISTORY: COUGH COMPARISON: None. TECHNIQUE: XR CHEST 1 VIEW 04/04/2023 2:09 AM DINING CAR WAITER/WAITRESS FINDINGS: Cardiac silhouette is normal in size. Lungs are clear without consolidation, atelectasis, mass or edema. There is no pleural effusion. There is no pneumothorax. There are no acute osseous fin dings. IMPRESSION: Clear lungs. Electronically signed by: Colton Mirza MD 04/04/2023 02:34 AM DINING CAR WAITER/WAITRESS Due to temporary technical issues with the PACS/Fluency reporting system, reports are being signed by the in house radiologist without review as a courtesy to ensure prompt reporting. The interpreting r adiologist is fully responsible for the content of the report.
== END ==
LOC: ER 01:28
DX: R05.9 Cough, unspecified (principal)
CPT/HCPCS: 71045; 99283